=== PATIENT | female | born 1940 | race Caucasian/White ===

== ENCOUNTER 2021-03-01 08:39 | Outpatient (CLI) | payer MEDICARE | END 2021-03-01 08:40 | disposition home or self-care (01) | LOC: BICULT 08:39 | PROVIDERS: ATTEND Physician Assistant | DX: R17 Unspecified jaundice (principal); Z90.49 Acquired absence of other specified parts of digestive tract | CPT/HCPCS: 76705 ==

== ENCOUNTER 2023-03-06 14:19 | Emergency (ER) | payer MEDICARE ==
[2023-03-06 17:03] LABS: #Basophils 0.1 thou/uL (0.0-0.2); #Eosinphils 0.1 thou/uL (0.0-0.7); #Monocytes 0.7 thou/uL (0.11-0.59); #Neutrophils 5.5 thou/uL (1.40-6.50); %Basophils 0.6 % (0.0-1.0); %Eosinophils 1.2 % (0.0-10.0); %Lymphocytes 28.7 % (21.0-51.0); %Monocytes 7.4 % (0.0-10.0); %Neutrophils 61.9 % (42.0-75.0); Hematocrit 50.5 % (36.0-47.0); Hemoglobin 16.8 g/dL (12.0-16.0); Mean Corpuscular HGB CONC 33.3 g/dL (32.0-36.0); Mean Corpuscular Hemoglobin 32.6 pg (27.0-31.0); Mean Corpuscular Volume 97.9 fl (78.0-98.0); Platelet Count 246 10x3/uL (130-400); RBC Distribution Width 12.1 % (11.5-14.5); Red Blood Cell (RBC) Count 5.16 mill/uL (4.20-5.40); White Blood Cell (WBC) Count 8.9 10x3/uL (4.8-10.8)
[2023-03-06 17:28] LABS: ALT (SGPT) 22 U/L (8-55); AST (SGOT) 27 U/L (5-34); Albumin 4.3 g/dL (3.4-4.8); Alkaline Phosphatase 62 U/L (40-110); Anion Gap 18 mmol/L (10-20); BUN (Urea Nitrogen) 16 mg/dL (9.8-20.1); Bilirubin, Total 1.1 mg/dL (0.2-1.2); Calc. Creatinine Clearance 0 mL/min (70-130); Carbon Dioxide 23 mmol/L (23-31); Chloride 107 mmol/L (98-107); Estimated GFR 57; Globulin 3.3 g/dL (2.4-3.5); Glucose 107 mg/dL (83-110); Potassium 4.4 mmol/L (3.5-5.1); Protein, Total 7.6 g/dL (5.8-8.1); Sodium 144 mmol/L (136-145)
[2023-03-06 17:33] LABS: Troponin I Less than 0.010 ng/mL (< 0.028)
[2023-03-06] MEDS ORDERED: diphenhydrAMINE 50 MG/ML VIAL ONE (18:38)
[2023-03-06] MEDS ORDERED: Metoclopramide HCl 10 MG/2 ML VIAL ONE (18:38)
== END 2023-03-06 20:10 | disposition home or self-care (01) ==
LOC: ERS 14:19
DX: D32.9 Benign neoplasm of meninges, unspecified (principal); R51.9 Headache, unspecified; I10 Essential (primary) hypertension
CPT/HCPCS: 36415; 70450; 71045; 80053; 84484; 85025; 93005; 96374; 96375; J1200; J2765

== ENCOUNTER 2023-03-13 07:58 | Outpatient (CLI) | payer MEDICARE | END 2023-03-13 07:59 | disposition home or self-care (01) | LOC: SCSMRI 07:58 | PROVIDERS: ATTEND Physician Assistant | DX: G93.89 Other specified disorders of brain (principal) | CPT/HCPCS: 70553 ==

== ENCOUNTER 2025-01-02 08:05 | Outpatient (CLI) | payer MEDICARE | END 2025-01-02 08:06 | disposition home or self-care (01) | LOC: BICMAMMO 08:05 | PROVIDERS: ATTEND Physician Assistant | DX: Z78.0 Asymptomatic menopausal state (principal); M85.851 Other specified disorders of bone density and structure, right thigh; M85.852 Other specified disorders of bone density and structure, left thigh | CPT/HCPCS: 77080 ==